=== PATIENT | male | born 1970 | race Caucasian/White ===

== ENCOUNTER 2019-05-12 10:02 | Day surgery (SDC) | payer OTHER, SELFPAY ==
[2019-05-08 07:51] VITALS: BMI 30.6
[2019-05-12 10:26] VITALS: BP 150/98; PULSE 67; RESP 15; TEMP 36.6; O2SAT 100; BMI 30.6
[2019-05-12] MEDS: LACTATED RINGERS 1,000 ML 100 ML IV ×2 (10:40→12:53)
--- NOTE | 2019-05-12 11:40 | PM.PREOP ---
Pre-operative Note Interval Note History & Physical reviewed/Exam performed by Physician: Yes Changes to H&P: No
[2019-05-12] MEDS: CEFAZOLIN 2 GM/100 ML FROZ.PIGGY IV (12:10)
--- NOTE | 2019-05-12 12:31 | SUR.OPER ---
Supine on padded OR bed, head on pillow, arm padded and tucked at side, legs uncrossed, safety belt at thigh, tape over blanket over lower legs .
[2019-05-12] MEDS: BUPIVACAINE 0.25% (PF) VIAL 30 ML INJ (12:42)
[2019-05-12 13:42] VITALS: BP 110/75; PULSE 58; RESP 14; TEMP 36.6; O2SAT 90
[2019-05-12 13:47] VITALS: BP 196/60; PULSE 54; RESP 16; O2SAT 95
[2019-05-12 13:50] VITALS: BP 109/61; BP 116/76; PULSE 63; PULSE 75; RESP 16; RESP 17; O2SAT 98
--- NOTE | 2019-05-12 13:55 | PM.OP.1 ---
Operative Date/Time/Diagnoses Date of procedure: 05/12/19 Time of procedure: 13:55 Pre-op diagnosis: Left inguinal hernia Post-op diagnosis: same Procedure & Clinicians Procedure: Laparoscopic transabdominal preperitoneal repair of left inguinal hernia Same procedure as scheduled: Yes Indications: 48-year-old male known with a symptomatic left inguinal hernia Surgeon: Pablo Amin Click Yes if Unassisted: Yes Anesthesia Type: General Operative Notes Findings: Indirect left inguinal hernia extending down of the scrotum containing omentum. No right inguinal hernia Specimen(s): none sent Estimated Blood Loss (mL): 10 Procedure in detail: The patient was brought to the operating room and placed supine on the table. Bilateral sequential compression devices were applied. General anesthesia was induced and they were intubated with an endotracheal tube. A avalos cath was placed in sterile fashion. They received 900g clindaymycin prior to skin incision. They were prepped and draped in sterile fashion. A time out was performed to ensure the correct patient, procedure and necessary equipment within the operating room. The skin was infiltrated with 0.25% bupivicaine. A 1 cm infram umbilical midline incision was made. The umbilical stalk was elevated the fascia sharply incised and the abdomen entered traumatically. A 10mm balloon port was placed and pneumoperitoneum was established at 15mm Hg. Inspection of the abdomen demonstrated no evidence of injury upon entry. Two 5 mm ports were then placed under direct visualization in the right and left lower quadrant lateral to the rectus muscle. A left indirect hernia was observed. There was no major right inguinal hernia. The vas deferns the spermatic vessels were identified and protected. The peritoneum 4 cm superior to the deep inguinal ring between the medial umbilical ligament and the anterior superior iliac spine was incised. The peritoneal flap was retracted and the preperitoneal tissue was dissected off the flap beginning lateral to the inferior epigastric artery and towards the ASIS and to posterior limit of the psoas muscle to develop the lateral aspect of the pocket. Next the peritoneum medial to the inferior epigastric was mobilized towards the median umbilical ligament to develop the medial aspect of the pocket. The space of Retzius was fully dissected such that the Yunior's ligament and the pubic symphysis were visible. Next, the peritoneum and omentum was mobilized off the the spermatic vessels and vas deferns. This was a very large left indirect defect containing incarcerated omentum who extending to the level of the scrotum which was gradually reduced. A medium Bard 3D Max mesh was then placed into the abdomen and positioned such that the myopectineal orifice was completely covered with good overlap on all sides. The mesh was anchored to the pubic tubercle and to Yunior?s ligament. The peritoneal flap was then repositioned back to its original position and tacks were used to anchor it in position such that no bowel could herniate into the preperitoneal space. The area was examined for hemostasis. The 5mm trocars were removed under direct visualization and pneumoperitoneum was deflated through the umbilical trocar, The fascia at the umbilicus was closed with 0-Vicryl in figure of 8 fashion, skin closed with 4-0 Monocyl followed by Dermabond. The sponge and instrument count at the end of the case was correct. Both testicles were entirely within the scrotum at the end of the case. The patient emerged from anesthsia was extubated and transferred to recovery in stable condition. Complications: none Post-operative Condition: stable Disposition: same day surgery
[2019-05-12 14:05] VITALS: BP 119/83; PULSE 65; RESP 16; O2SAT 99
[2019-05-12 14:25] VITALS: BP 118/79; PULSE 60; RESP 16; TEMP 36.4; O2SAT 100
== END 2019-05-12 14:40 | disposition home or self-care (01) ==
PROVIDERS: PCP Internal Medicine; Referring Provider Internal Medicine; Visit Provider Surgery
PROC: 0YQ64ZZ Repair Left Inguinal Region, Percutaneous Endoscopic Approach (ICD-10-PCS; CPT 49650; principal; 2019-05-12 11:15)
DX: K40.90 Unilateral inguinal hernia, without obstruction or gangrene, not specified as recurrent (principal)
CPT/HCPCS: 49650; C1781; J0690; J2704; J3010

== ENCOUNTER → 2019-11-07 14:32 | Outpatient (CLI) | payer OTHER, SELFPAY ==
[2019-11-08 21:08] LABS: COVID19 Sendout Not Detected (Not Detect)
== END ==
PROVIDERS: Visit Provider Physician Assistant
DX: Z11.59 Encounter for screening for other viral diseases (principal)
CPT/HCPCS: 87635

== ENCOUNTER 2019-11-10 08:25 | Day surgery (SDC) | payer OTHER, SELFPAY ==
[2019-11-03 07:55] VITALS: BMI 30.6
[2019-11-10] VITALS (7 sets, daily range): BP systolic 118–135; BP diastolic 81–89; PULSE 60–71; RESP 12–18; TEMP 36.1–36.6; O2SAT 97–99; BMI 30.2
[2019-11-10] MEDS: LACTATED RINGERS 1,000 ML 100 ML IV (08:48)
--- NOTE | 2019-11-10 09:19 | PM.PREOP ---
Pre-operative Note COVID-19 COVID-19 status: Negative Interval Note History & Physical reviewed/Exam performed by Physician: Yes Changes to H&P: No
[2019-11-10] MEDS: CEFAZOLIN 2 GM/100 ML FROZ.PIGGY IV (09:23)
--- NOTE | 2019-11-10 09:45 | SUR.OPER ---
Supine on padded OR bed, head on pillow, arms secured on padded arm boards at <90 degrees abduction, legs uncrossed, safety belt at thigh, tape over blanket over lower legs.
[2019-11-10] MEDS: BUPIVACAINE 0.25% (PF) VIAL 30 ML INJ (09:49)
[2019-11-10] MEDS: VANCOMYCIN 1,000 MG VIAL 1000 MG TOP (10:28)
--- NOTE | 2019-11-10 11:28 | P.OP_ITS ---
Operative Date/Time/Diagnoses Date of procedure: 11/10/19 Time of procedure: 11:29 Pre-op diagnosis: recurrent left inguinal hernia Post-op diagnosis: same Procedure & Clinicians Procedure: open repair of recurrent left inguinal hernia Same procedure as scheduled: Yes Indications: 49M had a laparoscopic left inguinal hernia repair and developed a large reoccurence 6 months post op with intestine within the scrotum. Surgeon: Pablo Amin Anesthesia Type: General Operative Notes Findings: large indirect hernia containing bowel extending into the scrotum. Specimen(s): none sent Estimated Blood Loss (mL): 50 Procedure in detail: The patient was placed supine on the table and bilateral lower extremity compression devices were applied. Anesthesia was induced they were intubated with an LMA and received 2g of Ancef. A time-out was performed. They were prepped and draped in sterile fashion. The left external inguinal ring and the anterior superior iliac crest were identified and marked. 1 finger breath above the inguinal ligament the skin was infiltrated with 0.25% bupivacaine. The skin incision was made here and the subcutaneous tissues were divided with electrocautery exposing the external oblique aponeurosis which was then opened along the direction of its fibers. There was a large indirect hernia within the canal extending into the scrotum. Using a kittner the cord was carefully dissected away from the inguinal canal adjacent to the pubic tubercle. The cord was freed and encircled with a [place] drain. No direct floor defect was identified. The cremasteric fibers surrounding the cord were divided using electrocautery. The vas deferens and the testicular vessels were preserved and protected. There was an very large indirect hernia on the anterior medial aspect of the cord which was skeletonized away from the vas deferens and testicular blood supply and contained intestine within in by p alpation. The indirect hernia was skeletonized back to the internal ring. The hernia sac was sharply opened and insepction confirmed that it was a indirect sac as intra abodminal content was observe through the sac. The sac was ligated with vircyl and reduced spontaneously into the abdomen. A plug of Prolene mesh was placed into the indirect defect and secured with Vicryl suture to the inguinal ligament. I selected a xtra jerry lightweight Pro Loop hernia mesh. The inferior medial aspect of the mesh was anchored to the periosteum of the pubic tubercle such that there was approximately 2 cm of tubercle overlap with 0 Prolene and then was run continuously along the inferior edge of the mesh to the shelving edge of the inguinal ligament. Interrupted 3 0 Vicryl suture was used to anchor the superior aspect of the mesh to the conjoined tendon in several places. The tails were then reapproximated around the spermatic cord loosely. The tails of the mesh were then tucked under the external oblique aponeurosis. The repair was checked for hemostasis. The wound was irrigated with sterile saline. The external oblique aponeurosis was reapproximated in a running fashion using 3 0 Vicryl. The subcutaneous tissues were reapproximated with 3 0 Vicryl skin closed with 4 0 Monocryl followed by the application of Dermabond. At the end of the operation ensure that both testicles were within the scrotum. The sponge instrument count at the end operation was correct. The patient emerged from anesthesia was extubated and transferred to the postoperative care unit in stable condition. A total of 30 ml of of 0.25% bupivicaine was used to infiltrate the skin. Complications: none Post-operative Condition: stable Disposition: same day surgery
[2019-11-10] MEDS: OXYCODONE/ACETAMINOPHEN 5/325 TABLET 1 TAB PO (11:30)
--- NOTE | 2019-11-10 12:25 | SUR.PHASEII ---
called, in to see pt, d/c instructions discussed, all voiced an understanding. Pt left when ready and left in stable condition.
== END 2019-11-10 12:22 | disposition home or self-care (01) ==
PROVIDERS: Referring Provider Surgery; Visit Provider Surgery
PROC: (CPT 49521; principal; 2019-11-10 09:45)
DX: K40.31 Unilateral inguinal hernia, with obstruction, without gangrene, recurrent (principal); I10 Essential (primary) hypertension
CPT/HCPCS: 49521; C1781; J0690; J1100; J1885; J2250; J2405; J2704; J3010